=== PATIENT | male | born 1970 | race Caucasian/White ===

== ENCOUNTER 2023-05-03 14:30 | Outpatient (RCR) | payer BC, SELFPAY ==
--- NOTE | 2023-04-07 09:04 | OPREHPOC ---
Outpatient Therapy Plan of Care This is a Multidisciplinary Plan of Care that may contain components documented by all disciplines (PT, OT, and ST.) PT Problem 1 PT Problem #1 Knowledge Deficit PT Goal 1 Goal Pt to be IND with issued HEP Target Visit 4 PT Problem 2 PT Problem #2 Pain PT Goal 1 Goal Pt to report knee pain no greater than 3/10 in the last week. Target Visit 4 PT Goal 2 Goal Pt to reports 75% improvement in overall symptoms Target Visit 4 PT Problem 3 PT Problem #3 Impaired Gait PT Goal 1 Goal Pt to be able to do a 3 mile run without an increase in pain afterwards Target Visit 4 PT Goal 2 Goal Pt to demonstrate good LE control during jogging Target Visit 4
--- NOTE | 2023-04-07 09:04 | PTOPEVAL1 ---
Assessment and note entered by Mignon Encarnacion, PT, DPT Evaluation Information Assessment Status Evaluation Diagnosis L knee patellofemoral pain, M22.2x2 Onset 2-3 months Subjective Information Pt declines a PASTORA. He states his knee mainly hurts after he goes for a run. He states a few times he has felt knee pain while running, this is pretty new. He states he has cut back on running and has just been biking and this does not cause an increase in pain. He reports after a run he will also have pain at rest for a couple of days which has woken him up from sleep. He reports a 4/10 at the worst, which was a 7/10 when he was still running. Reported Pain Level Pain Score 0: Self Report Assessment PT Clinical Summary Eduardo presents to therapy today for his initial evaluation with a diagnosis of L patellofemoral pain. Today he demonstrates good LE strength grossly but has poor knee stability during functional squatting and jogging. There is mild tightness of his hamstrings javier and his L quad. There is a slight lateral tipping to his patella. Skilled therapy services are indicated to improve running mechanics, to manage pain, to improve stability, and to return to PLOF. Plan of Care Interventions Gait Training,Hot Pack/Cold Pack,Manual Therapy, Neuro Re-education,Patient/Caregiver Educati, Therapeutic Activities,Therapeutic Exercise PT Services Indicated Yes Treatment Frequency and 1x/wk for 4 visits Duration These treatments will address the objective and functional deficits as defined above. The patient will be advanced safely and appropriately in order for the patient to progress towards his/her prior level of function. Additional exercises will be introduced and as well as a comprehensive home exercise program upon discharge, if needed, ?to ensure carryover of functional gains achieved in the clinic. This treatment plan has been reviewed and agreement upon by the patient.
--- NOTE | 2023-05-03 15:04 | PTOPDC ---
Assessment and note entered by Mignon Encarnacion, PT, DPT Evaluation Information Assessment Status Discharge Diagnosis L knee patellofemoral pain, M22.2x2 Onset 2-3 months Subjective Information Pt states his knee is doing pretty good. He states he ran twice this week so it is a little sore but only a 1-2/10. He states he played basketball on Monday and states his knee felt normal with this. He declines any sharp pain in the last couple of weeks. Reported Pain Level Pain Score 2: Self Report Assessment PT Clinical Summary Eduardo presents to therapy today for his progress report following 5 visits of skilled therapy to treat his diagnosis of L patellofemoral pain. Today he demonstrates good LE strength and ROM. His resting patellar position has improved and his pain reports have decreased. He is progressing well towards his therapy goals and no longer requires skilled services at this time.
== END 2023-05-03 15:43 | disposition home or self-care (01) ==
LOC: ANHGOSHPT 14:30
PROVIDERS: PCP Family Medicine; Visit Provider Family Medicine
DX: M22.2X2 Patellofemoral disorders, left knee (principal)
CPT/HCPCS: 97110; 97116; 97161; 97530

== ENCOUNTER 2024-03-21 00:37 | Day surgery (SDC) | payer BC, SELFPAY ==
[2024-03-07 14:55] VITALS: BMI 20.9
[2024-03-21 08:22] VITALS: BP 121/75; PULSE 63; RESP 20; TEMP 36.2; O2SAT 100; BMI 19.5
[2024-03-21] MEDS: LACTATED RINGERS 1,000 ML 150 ML IV CONT (08:31)
--- NOTE | 2024-03-21 08:32 | SUR.PREOP ---
pt wishes to have everything done in a code event, full code
--- NOTE | 2024-03-21 08:34 | P.PNAN_ITS ---
Anes - Initial Pre Proc Eval Procedure: Operation Date: 03/21/24 09:30 Proposed Procedures p Screening Colonoscopy - Singh Long DO Date/Time: 03/21/24 08:34 Surgeon: Singh Long DO Pre Op Diagnosis: Screening for malignant neoplasm of colon Patient Data Age: 53 Gender: M Height: 1.8 m Weight: 63.5 kg Last Vital Signs Temp 97.2 F L 03/21/24 08:22 Pulse 63 03/21/24 08:22 Resp 20 03/21/24 08:22 BP 121/75 03/21/24 08:22 Pulse Ox 100 03/21/24 08:22 O2 Del Method Room Air 03/21/24 08:22 Allergies Allergy/AdvReac Type Severity Reaction Status Date / Time No Known Allergies Allergy Mild Verified 03/21/24 08:21 Home Medications Medication Instructions Recorded Confirmed Type No Home Medications 07/22/21 03/21/24 History Patient hx anesthesia problems: none Family hx anesthesia problems: none Results Review: All pre-operative results and documents have been reviewed as part of the pre- operative evaluation. [facility] Past Medical History Medical History Pre-syncope Family History Family History Grandparent Diabetes mellitus Cerebrovascular accident Family history of malignant neoplasm of breast Father Family history of cardiovascular disease Family history of coronary artery disease Other No family history of malignant neoplasm Social History Social History (Updated 09/28/23 @ 15:01 by Carly Macdonald MA) Smoking status: Current some day smoker Tobacco type: cigarettes Smoking end date: 06/12/94 Alcohol intake: current Drinks per week: 10 Substance use: never Substance use type: does not use Do You Feel Safe in your Home?: Yes Lack of Transportation: No Lack of Food: Never True Current Housing: I Have Housing Concerned About Future Housing: No Difficulty Paying Gas/Electric Bills: No Difficulty Paying for Meds: No Currently Unemployed: No Education: Bachelor's Degree Difficulty w/ Childcare or Family Care: No Living arrangements: with family Spiritual care concerns: No Anes - Eval Final PreProcedure Day of Procedure 03/21/24 08:34 Patient weight: normal Heart: regular rate and rhythm Lungs: clear to auscultation Airway: Mallampati scale class II Neurological: alert and oriented Last oral intake: >/= 8 hours ASA classification: II Emergent: no Anesthetic plan: proceed Anesthesia type and monitoring: general GIVS and standard monitoring Results Review: All pre-operative results and documents have been reviewed as part of the pre- operative evaluation. Informed Consent: The patient's anesthetic plan and its attendant risks and benefits were discussed with the patient/family/POA. Questions were solicited and answers provided to the satisfaction of the patient/family/POA.
--- NOTE | 2024-03-21 09:02 | PM.IMHP ---
H&P: HPI History of Present Illness Date/Time: 03/21/24 09:02 Chief Complaint: screening for colorectal cancer Narrative: this is a 53-year-old man who presents for colonoscopy. He has never had a colonoscopy before. He denies any hematochezia or melena. He denies any family history of colon cancer. Review of Systems Review of Systems: All systems reviewed & are unremarkable except as noted in HPI and below Constitutional: Constitutional: Denies chills, Denies fever(s), Denies headache(s) and Denies weight loss Eyes: Eyes: Denies change in vision ENT: Denies dizziness, Denies headache(s), Denies neck mass and Denies throat swelling Cardiovascular: Cardiovascular: Denies chest pain, Denies lightheadedness and Denies dyspnea Respiratory: Respiratory: Denies cough, Denies dyspnea and Denies wheezing Gastrointestinal: Gastrointestinal: Denies abdominal pain, Denies change in bowel habits, Denies nausea and Denies vomiting Genitourinary: Genitourinary: Denies hematuria and Denies dysuria Musculoskeletal: Musculoskeletal: Reports as per HPI Integumentary/Breasts: Skin/Breast: Reports as per HPI Neurologic: Denies dizziness and Denies headache(s) Allergic/Immunologic: Allergic/Immunologic: Denies throat swelling and Denies wheezing [facility] Past Medical History Medical History Pre-syncope Family History Family History Grandparent Diabetes mellitus Cerebrovascular accident Family history of malignant neoplasm of breast Father Family history of cardiovascular disease Family history of coronary artery disease Other No family history of malignant neoplasm Social History Social History (Updated 09/28/23 @ 15:01 by Carly Macdonald MA) Smoking status: Current some day smoker Tobacco type: cigarettes Smoking end date: 06/12/94 Alcohol intake: current Drinks per week: 10 Substance use: never Substance use type: does not use Do You Feel Safe in your Home?: Yes Lack of Transportation: No Lack of Food: Never True Current Housing: I Have Housing Concerned About Future Housing: No Difficulty Paying Gas/Electric Bills: No Difficulty Paying for Meds: No Currently Unemployed: No Education: Bachelor's Degree Difficulty w/ Childcare or Family Care: No Living arrangements: with family Spiritual care concerns: No Meds Home Medications and Allergies Home Medications Medication Instructions Recorded Confirmed Type No Home Medications 07/22/21 03/21/24 History Allergies Allergy/AdvReac Type Severity Reaction Status Date / Time No Known Allergies Allergy Mild Verified 03/21/24 08:21 Vital Signs Vital Signs - 24 hr 03/21/24 08:22 Temperature 97.2 F L Pulse Rate 63 Respiratory Rate 20 Blood Pressure 121/75 Pulse Oximetry 100 Oxygen Delivery Room Air Exam Const: General: no acute distress and alert Orientation/consciousness: patient oriented x3 HENMT: Head: normocephalic and atraumatic Ears: hearing grossly normal bilaterally Face/Nose/Sinus: Normal nares present Mouth: Yes Normal oral and palatal mucosa present Eyes: Periorbital: periorbital findings normal Sclera: sclerae normal EOM: EOMs intact bilaterally Neck: Neck: normal visual inspection, no lymphadenopathy and trachea midline Chest: Chest palpation & inspection: normal inspection of the chest Resp: Effort & Inspection: normal respiratory effort Auscultation: clear to auscultation bilaterally Cardio: Jugular venous distension: no JVD Rate: regular rate Rhythm: regular rhythm Heart sounds: S1 normal heart sound present and S2 normal heart sound present Peripheral pulses: Peripheral pulses 2+ throughout GI: Inspection: normal to inspection GI Palp: Yes Soft to palpation, No Tenderness to palpation present (GI), No Guarding due to palpation present (GI) and
[2024-03-21 09:38] VITALS: BP 95/55; PULSE 63; RESP 18; O2SAT 100
[2024-03-21 09:48] VITALS: BP 112/69; PULSE 70; RESP 20; O2SAT 100
[2024-03-21 09:58] VITALS: BP 115/73; PULSE 60; RESP 17; O2SAT 100
== END 2024-03-21 10:00 | disposition home or self-care (01) ==
PROVIDERS: PCP Family Medicine; Visit Provider Surgery
PROC: 0DJD8ZZ Inspection of Lower Intestinal Tract, Via Natural or Artificial Opening Endoscopic (ICD-10-PCS; CPT 45378; principal; 2024-03-21 09:30)
DX: Z12.11 Encounter for screening for malignant neoplasm of colon (principal); F17.210 Nicotine dependence, cigarettes, uncomplicated; Z80.3 Family history of malignant neoplasm of breast; Z82.49 Family history of ischemic heart disease and other diseases of the circulatory system
CPT/HCPCS: 45378; J2003; J2704; J7120